=== PATIENT | male | born 1960 | race Caucasian/White ===

== ENCOUNTER 2019-03-07 05:43 | Inpatient (IN) | payer BC ==
[~2019-03-07] VITALS: Ht 185.4 cm; Wt 100.0 kg
[2019-03-07] VITALS (21 sets, daily range): BP systolic 100–188; BP diastolic 34–152
[~2019-03-07 05:43] MED LIST: ASPI81TA52 PO; ATOR20TA PO
[2019-03-07] MEDS ORDERED: aspirin 81mg tab.chew PO ONE (05:50)
[2019-03-07] MEDS ORDERED: ondansetron/PF 4mg/2ml inj IV STA (06:03)
[2019-03-07] MEDS ORDERED: LIDOcaine Viscous 15ml cup MM STA (06:03)
[2019-03-07] MEDS ORDERED: mag hydrox/Alum hydrox/simeth 30ml oral suspension PO STA (06:03)
[2019-03-07] MEDS ORDERED: NO HOME MEDS (06:08)
[2019-03-07 06:15] LABS: BASOPHILS # (AUTO) 0.1 X10'3 (0-0.2); BASOPHILS % (AUTO) 0.7 % (0-1); EOSINOPHILS # (AUTO) 0.2 X10'3 (0-0.9); EOSINOPHILS % (AUTO) 2.1 % (0-6); HEMATOCRIT 47.8 % (42.0-52.0); LYMPHOCYTES # (AUTO) 2.2 X10'3 (1.1-4.8); LYMPHOCYTES % (AUTO) 19.2 % (21-51); MEAN CORPUSCULAR HEMOGLOBIN 30.7 PG (27.0-31.0); MEAN CORPUSCULAR HGB CONC 33.5 g/dL (33.0-36.5); MEAN CORPUSCULAR VOLUME 91.5 FL (78-98); MEAN PLATELET VOLUME 8.9 FL (7.4-10.4); MONOCYTES # (AUTO) 0.8 X10'3 (0-0.9); MONOCYTES % (AUTO) 7.1 % (2-12); NEUTROPHILS # (AUTO) 8.1 X10'3 (1.8-7.7); NEUTROPHILS % (AUTO) 70.9 % (42-75); PLATELET COUNT 157 X10'3 (140-440); RED BLOOD COUNT 5.22 X10'6 (4.70-6.10); RED CELL DISTRIBUTION WIDTH 13.9 % (11.5-14.5); WHITE BLOOD COUNT 11.4 X10'3 (4.5-11.0)
--- NOTE | 2019-03-07 06:37 | NUR ---
DR. NELSON AT BEDSIDE.
[2019-03-07 06:39] LABS: ALANINE AMINOTRANSFERASE 90 U/L (12-78); ALBUMIN 3.8 G/DL (3.4-5.0); ALBUMIN/GLOBULIN RATIO 0.9 (1.1-1.5); ALKALINE PHOSPHATASE 88 IU/L (46-116); ANION GAP 10 (8-16); ASPARTATE AMINO TRANSFERASE 69 U/L (10-37); BILIRUBIN,TOTAL 0.5 MG/DL (0.1-1.0); BLOOD UREA NITROGEN 18 MG/DL (7-18); CALCIUM 9.4 MG/DL (8.5-10.1); CHLORIDE 105 MMOL/L (99-107); GLUCOSE 142 MG/DL (70-104); MAGNESIUM 2.1 MG/DL (1.5-2.4); PARTIAL THROMBOPLASTIN TIME 27 SECONDS (22-32); POTASSIUM 4.6 MMOL/L (3.5-5.1); SODIUM 139 MMOL/L (135-145); TOTAL CARBON DIOXIDE 23.7 MMOL/L (24-32); TOTAL PROTEIN 7.9 G/DL (6.4-8.2); eGFR 87 ML/MIN
[2019-03-07 06:41] LABS: ETHANOL < 0.010 GM/DL (0.0-0.010)
[2019-03-07] MEDS ORDERED: heparin 25,000 UNIT/250ml bag 250 ML IV SCH (06:44)
[2019-03-07] MEDS ORDERED: heparin 10,000 units/1 ML INJ IV ONE (06:45)
[2019-03-07] MEDS ORDERED: heparin 10,000 units/1 ML INJ IV PRN (06:45)
[2019-03-07] MEDS ORDERED: ondansetron/PF 4mg/2ml inj IV ONE (06:45)
[2019-03-07] MEDS ORDERED: morphine 4 MG/ML inj SYRINge IV ONE (06:45)
[2019-03-07 06:50] LABS: LIPASE 155 U/L (73-393)
[2019-03-07] MEDS: tirofiban 12.5mg in NS 250mL 250 ML IV SCH ×2 (07:10→19:34)
[2019-03-07] MEDS: nitroGLYCERIN 0.4mg SUBLingual tab SL PRN ×6 (07:11→10:16)
[2019-03-07] MEDS ORDERED: magnesium hydroxide 30ml (MOM) UD suspension PO PRN ×2 (07:35→09:15)
[2019-03-07] MEDS ORDERED: acetaminophen 325mg tablet PO PRN ×3 (07:35→09:15)
[2019-03-07] MEDS ORDERED: mag hydrox/Alum hydrox/simeth 30ml oral suspension PO PRN ×2 (07:35→09:15)
[2019-03-07] MEDS ORDERED: ondansetron/PF 4mg/2ml inj IV PRN ×2 (07:35→09:15)
[2019-03-07 07:56] LABS: URINE AMPHETAMINE SCREEN NEGATIVE (Neg); URINE BARBITUATE SCREEN NEGATIVE (Neg); URINE BENZODIAZEPINES SCREEN NEGATIVE (Neg); URINE CANNABINOID SCREEN POSITIVE (Neg); URINE COCAINE SCREEN NEGATIVE (Neg); URINE METHADONE SCREEN NEGATIVE (Neg); URINE OPIATE SCREEN NEGATIVE (Neg); URINE PHENCYCLIDINE SCREEN NEGATIVE (Neg)
--- NOTE | 2019-03-07 08:55 | NUR ---
dr. ambrocio at bedside.
[2019-03-07] MEDS ORDERED: normal saline 1000ml 1,000 ML IV SCH ×2 (09:13→14:20)
[2019-03-07] MEDS ORDERED: HYDROcodone/acetaminophen 5mg/325mg tablet PO PRN (09:15)
[2019-03-07] MEDS ORDERED: bisacodyl 10mg suppository rectal RC PRN (09:15)
[2019-03-07] MEDS ORDERED: magnesium 4gm in 100ml NS 100 ML IV PRN (09:15)
[2019-03-07] MEDS ORDERED: magnesium Cl slow-release 64mg tablet PO PRN (09:15)
[2019-03-07] MEDS: K and/or MAG REPLACEMENT MC SCH (09:15)
[2019-03-07] MEDS ORDERED: HYDROcodone/acetaminophen 10/325mg tab PO PRN (09:15)
[2019-03-07] MEDS ORDERED: potassium CL 10mEq/100ml bag 100 ML IV PRN ×2 (09:15)
[2019-03-07] MEDS ORDERED: morphine 2 MG/ML inj. syringe IV PRN ×2 (09:15)
[2019-03-07] MEDS ORDERED: magnesium 2GM in 50ml NS 50 ML IV PRN (09:15)
[2019-03-07] MEDS ORDERED: potassium Cl 20 mEq SR tablet PO PRN ×2 (09:15)
[2019-03-07] MEDS ORDERED: diphenhydrAMINE 50 mg/ml inj IV PRN (09:15)
[2019-03-07] MEDS ORDERED: diphenhydrAMINE 25mg capsule PO PRN (09:15)
[2019-03-07] MEDS: atorvastatin 20mg tablet PO SCH (09:41)
--- NOTE | 2019-03-07 10:00 | NUR ---
PT HAVING EPISODE OF BURNING CP. TROP RESULT 9.82. DR FAJARDO OFFICE CONTACTED. MESSAGE GIVEN. EKG TAKEN, NTG AND MORPHINE GIVEN. DR FAJARDO CONTACTED. EKG FAXED TO HIM. EKG TAKEN TO ER WE WAIT. DR RIVAS STATED NO STEMI BUT WOULD NOT COMMIT. EKG SHOWN TO DR SALAS. NEW ORDERS RECEIVED. Addendum: 03/07/19 at 1034 by Genna Del Cid RN Amended: Links added.
[2019-03-07] MEDS ORDERED: nitroGLYCERIN-Tridil 50MG/D5W 250 ML IV SCH (10:25)
--- NOTE | 2019-03-07 10:28 | NUR ---
Received critical value of troponin 9.82, removed food tray from patient while CRN contacted . While in the room patient began having increased chest pain. started O2 as patient was having difficulty breathing. gave nitro 0.4mgx3 doses q5min, and morphine 2mg, patient reports improvement in pain. Dr. Cruz at bedside, ordered nitro drip to start.
--- NOTE | 2019-03-07 11:10 | NUR ---
patient experiencing resurgence of chest pain, repeat 12-lead EKG performed, Dr. 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 Price
[2019-03-07] MEDS ORDERED: iohexol 350 MG/ML 50ML vial IV ONE (11:59)
[2019-03-07] MEDS ORDERED: iohexol 350MG/ML 100ml bottle IV ONE (11:59)
[2019-03-07] MEDS ORDERED: heparin 1,000unit/ml 10ml vial 10 ML ONE (11:59)
[2019-03-07] MEDS ORDERED: midazolam 2 mg/2 ml injection ONE (11:59)
[2019-03-07] MEDS ORDERED: nitroGLYCERIN-Tridil 50MG/D5W 250 ML IV ONE (11:59)
[2019-03-07] MEDS ORDERED: LIDOcaine 1% (10mg/ml)w/preservative injection 20ml MDV ONE (11:59)
[2019-03-07] MEDS ORDERED: fentaNYL/PF 50MCG/1 ML 2ML syringe ONE (11:59)
--- NOTE | 2019-03-07 12:00 | NUR ---
Patient to catheterization laboratory technician
[2019-03-07] MEDS ORDERED: verapamil 2.5 mg/ml inj IV ONE (12:44)
[2019-03-07] MEDS ORDERED: iohexol 350 MG/1 ML 200ml bottle ONE (13:06)
[2019-03-07] MEDS ORDERED: ticagrelor 90mg tablet ONE (13:30)
--- NOTE | 2019-03-07 14:00 | NUR ---
Patient returned from laborer stores, aggrastat running at 18ml/hr, NS@150ml/hr, heparin@1000/hr, nitro@1.5ml/hr Patient reports relief of chest pain but continuing headache.
[2019-03-07] MEDS ORDERED: OXAZEpam 15mg capsule PO PRN (14:30)
[2019-03-07] MEDS ORDERED: cyclobenzaprine 10mg tablet PO PRN (14:30)
--- NOTE | 2019-03-07 15:21 | NUR ---
PAGER ID: [phone] MESSAGE: MERCEDES Isbell, ext [phone], [id number], [place], patient post cath, still on nitro drip, c/o pounding headache, SBP 140-160s, DBP 60-80s, chest pain has resolved. DC nitro drip? Thank you.
[2019-03-07 15:48] LABS: BASOPHILS # (AUTO) 0.1 X10'3 (0-0.2); BASOPHILS % (AUTO) 0.8 % (0-1); EOSINOPHILS # (AUTO) 0.3 X10'3 (0-0.9); EOSINOPHILS % (AUTO) 2.8 % (0-6); HEMOGLOBIN 14.6 g/dl (14.0-17.9); LYMPHOCYTES # (AUTO) 2.5 X10'3 (1.1-4.8); LYMPHOCYTES % (AUTO) 26.7 % (21-51); MEAN CORPUSCULAR HEMOGLOBIN 31.2 PG (27.0-31.0); MEAN CORPUSCULAR HGB CONC 33.9 g/dL (33.0-36.5); MEAN CORPUSCULAR VOLUME 91.9 FL (78-98); MEAN PLATELET VOLUME 9.1 FL (7.4-10.4); MONOCYTES # (AUTO) 0.8 X10'3 (0-0.9); MONOCYTES % (AUTO) 8.2 % (2-12); NEUTROPHILS # (AUTO) 5.8 X10'3 (1.8-7.7); NEUTROPHILS % (AUTO) 61.5 % (42-75); PLATELET COUNT 147 X10'3 (140-440); RED BLOOD COUNT 4.67 X10'6 (4.70-6.10); RED CELL DISTRIBUTION WIDTH 13.8 % (11.5-14.5); WHITE BLOOD COUNT 9.4 X10'3 (4.5-11.0)
--- NOTE | 2019-03-07 17:48 | NUR ---
Removed dressing from radial access site per order, hemostasis achieved. Patient educated on physical limitations for using that arm and handout was provided. Patient verbalized understanding of teaching.
--- NOTE | 2019-03-07 18:00 | NUR ---
Patient in room PCU 3016. I have received report from MERCEDES Isbell and had the opportunity to ask questions and assume patient care.
--- NOTE | 2019-03-07 18:33 | NUR ---
Problems reprioritized. Patient report given, questions answered & plan of care reviewed with MERCEDES Christiansen. Patient currently resting in bed, bed locked and low, call light in reach, at bedside, no acute distress, stable at shift change.
[2019-03-07] MEDS: carVEDilol 3.125mg tablet PO SCH (19:30)
[2019-03-07] MEDS: docusate sod 100mg capsule PO SCH (19:30)
[2019-03-07] MEDS ORDERED: temazepam 15mg capsule PO PRN (21:00)
[2019-03-08 03:00] VITALS: BP 136/69
[2019-03-08 06:00] VITALS: BP 145/94
--- NOTE | 2019-03-08 06:00 | NUR ---
Patient in room PCU 3016. I have received report from MERCEDES Christiansen and had the opportunity to ask questions and assume patient care. Patient is currently sitting up in chair at side of bed, at bedside, requesting shower. No acute distress, will continue to monitor.
--- NOTE | 2019-03-08 06:07 | NUR ---
Problems reprioritized. Patient report given, questions answered & plan of care reviewed with MERCEDES Isbell.
[2019-03-08 06:36] LABS: ALANINE AMINOTRANSFERASE 84 U/L (12-78); ALBUMIN 3.2 G/DL (3.4-5.0); ALBUMIN/GLOBULIN RATIO 0.8 (1.1-1.5); ALKALINE PHOSPHATASE 72 IU/L (46-116); ANION GAP 9 (8-16); ASPARTATE AMINO TRANSFERASE 74 U/L (10-37); BILIRUBIN,TOTAL 0.6 MG/DL (0.1-1.0); BLOOD UREA NITROGEN 14 MG/DL (7-18); BUN/CREATININE RATIO 16.5 (5.4-32.0); CALCIUM 8.6 MG/DL (8.5-10.1); CHLORIDE 107 MMOL/L (99-107); CHOL/HDL RATIO 4.2 (0.00-4.99); CHOLESTEROL 172 MG/DL (0-200); CREATININE 0.85 MG/DL (0.60-1.10); GLUCOSE 102 MG/DL (70-104); HDL CHOLESTEROL 41 MG/DL (35-60); LDL CHOLESTEROL 125 MG/DL (50-100); MAGNESIUM 2.1 MG/DL (1.5-2.4); PHOSPHORUS 3.9 MG/DL (2.3-4.5); POTASSIUM 4.4 MMOL/L (3.5-5.1); SODIUM 140 MMOL/L (135-145); TOTAL CARBON DIOXIDE 24.3 MMOL/L (24-32); TOTAL PROTEIN 7.1 G/DL (6.4-8.2); TRIGLYCERIDES 56 MG/DL (20-135); eGFR > 90 ML/MIN
[2019-03-08 07:25] LABS: BASOPHILS % (AUTO) 0.6 % (0-1); EOSINOPHILS # (AUTO) 0.2 X10'3 (0-0.9); EOSINOPHILS % (AUTO) 2.6 % (0-6); HEMOGLOBIN 15.2 g/dl (14.0-17.9); LYMPHOCYTES # (AUTO) 1.7 X10'3 (1.1-4.8); LYMPHOCYTES % (AUTO) 22.5 % (21-51); MEAN CORPUSCULAR HEMOGLOBIN 30.6 PG (27.0-31.0); MEAN CORPUSCULAR HGB CONC 33.1 g/dL (33.0-36.5); MEAN CORPUSCULAR VOLUME 92.4 FL (78-98); MEAN PLATELET VOLUME 9.5 FL (7.4-10.4); MONOCYTES % (AUTO) 12.7 % (2-12); NEUTROPHILS # (AUTO) 4.7 X10'3 (1.8-7.7); NEUTROPHILS % (AUTO) 61.6 % (42-75); PLATELET COUNT 138 X10'3 (140-440); RED BLOOD COUNT 4.98 X10'6 (4.70-6.10); RED CELL DISTRIBUTION WIDTH 14.3 % (11.5-14.5); WHITE BLOOD COUNT 7.7 X10'3 (4.5-11.0)
[2019-03-08] MEDS: carVEDilol 3.125mg tablet PO SCH (07:39)
[2019-03-08 07:43] VITALS: BP_SYST 141
[2019-03-08] MEDS: atorvastatin 20mg tablet PO SCH (07:43)
[2019-03-08] MEDS: docusate sod 100mg capsule PO SCH (07:44)
[2019-03-08] MEDS: K and/or MAG REPLACEMENT MC SCH (07:44)
[2019-03-08] MEDS ORDERED: metoprolol succinate 25mg (24-HOUR) SR. Tablet PO SCH (08:00)
[2019-03-08] MEDS ORDERED: lisinopril 10 MG tablet PO SCH (08:00)
[2019-03-08] MEDS ORDERED: aspirin 81mg tablet.DR PO SCH (08:00)
[2019-03-08] MEDS ORDERED: ticagrelor 90mg tablet PO SCH (08:00)
--- NOTE | 2019-03-08 08:55 | NUR ---
PAGER ID: [phone] MESSAGE: [id number] ANDREI WANTS TO LEAVE AMA. [facility] [id number]
--- NOTE | 2019-03-08 09:22 | NUR ---
Pt wanting to leave AMA. Discussed with patient risks of leaving AMA, pt is passive, not responding to discourse. IV removed as patient has made it clear that he is going to leave. AMA paperwork presented to patient, pt demonstrates hesitation about signing paperwork, states that he would like to talk to MD before leaving. I emphasized the importance of making sure that the patient goes home on an anticoagulant to prevent occlusion of newly placed cardiac stent. Pt appears to understand importance of medication, however does not like the idea of having to take medications at home. 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 Empathized with patient, acknowledged that being stressed in this situation is understandable. Expressed to patient importance of taking care of himself. Offered to contact case management on behalf of patient to set up outpatient resources to help manage stressors in life, pt declined. Pt sitting in bed, appears to be weighing decision. Will continue to monitor.
--- NOTE | 2019-03-08 09:48 | NUR ---
Dr. Cruz has not responded to page regarding patient wanting to leave AMA, contacted Dr. Price's answering service and waiting for response.
--- NOTE | 2019-03-08 10:33 | NUR ---
PAGER ID: [phone] MESSAGE: MERCEDES Isbell, ext [phone], [phone], [place], Patient wants to be discharged, cristóbal has seen and evaluated patient. Trying to convince him to not leave AMA.
[2019-03-08] MEDS ORDERED: ATOR20TA66 PO (10:48)
[2019-03-08] MEDS ORDERED: METO-395 PO (10:48)
[2019-03-08] MEDS ORDERED: TICA90TA PO (10:48)
[2019-03-08] MEDS ORDERED: ASPI-1071 PO (10:48)
[2019-03-08] MEDS ORDERED: NITR0.4T51 SL (10:48)
[2019-03-08] MEDS ORDERED: LISI10TA4 PO (10:48)
--- NOTE | 2019-03-08 11:02 | NUR ---
Dr. Cruz called and stated he would be here within 30-45 minutes. Patient was informed of this. Patient snuck out of his room while RN was on break and did not sign his AMA papers and did not receive his prescriptions. Prior to his leaving he was educated on his new prescriptions and the necessity of them for maintaining his new stent. Patient may have snuck out to smoke and may return, unknown at this time. Will attempt to contact him or his .
--- NOTE | 2019-03-08 11:40 | NUR ---
Patient has not returned, no answer on phone, assumed to have left AMA. message left for patient to call if they would like their prescriptions called in for them to [facility].
--- NOTE | 2019-03-08 12:04 | NUR ---
Cardiac diet education consult: Pt left AMA prior to RD visit. Noted that lipid panel WNL except elevated LDL of 125. Addendum: 03/08/19 at [address] Amended: Links added.
--- NOTE | 2019-03-08 12:21 | NUR ---
Patient's called and requested prescriptions be called to [facility]. prescriptions were called in from Dr. Price's oders at 12:20
== END 2019-03-08 10:55 | disposition left against medical advice (07) | DRG 247 ==
LOC: ER 05:43 → PCU 3S 09:17
PROVIDERS: ADMIT Family Medicine; ATTEND Family Medicine
PROC: 4A023N7 Measurement of Cardiac Sampling and Pressure, Left Heart, Percutaneous Approach (ICD-10-PCS; principal; 2019-03-07)
PROC: 027034Z Dilation of Coronary Artery, One Artery with Drug-eluting Intraluminal Device, Percutaneous Approach (ICD-10-PCS; 2019-03-07)
PROC: B2111ZZ Fluoroscopy of Multiple Coronary Arteries using Low Osmolar Contrast (ICD-10-PCS; 2019-03-07)
PROC: B2151ZZ Fluoroscopy of Left Heart using Low Osmolar Contrast (ICD-10-PCS; 2019-03-07)
DX: I21.4 Non-ST elevation (NSTEMI) myocardial infarction (principal); E11.9 Type 2 diabetes mellitus without complications; E66.9 Obesity, unspecified; E78.5 Hyperlipidemia, unspecified; F12.10 Cannabis abuse, uncomplicated; F17.210 Nicotine dependence, cigarettes, uncomplicated; B19.20 Unspecified viral hepatitis C without hepatic coma; K72.90 Hepatic failure, unspecified without coma; Z53.21 Procedure and treatment not carried out due to patient leaving prior to being seen by health care provider; Z60.2 Problems related to living alone; M19.90 Unspecified osteoarthritis, unspecified site; I10 Essential (primary) hypertension; J44.9 Chronic obstructive pulmonary disease, unspecified; Z66 Do not resuscitate; Z80.3 Family history of malignant neoplasm of breast; Z80.52 Family history of malignant neoplasm of bladder; Z82.49 Family history of ischemic heart disease and other diseases of the circulatory system; Z85.05 Personal history of malignant neoplasm of liver; Z85.828 Personal history of other malignant neoplasm of skin; Z90.49 Acquired absence of other specified parts of digestive tract; Z91.19 Patient's noncompliance with other medical treatment and regimen; Z68.29 Body mass index [BMI] 29.0-29.9, adult; Z71.51 Drug abuse counseling and surveillance of drug abuser; Z71.6 Tobacco abuse counseling
CPT/HCPCS: 93458; 96374; 96375; 96376; 99291; C9600; 36415; 71045; 80053; 80061; 80305; 80320; 83036; 83690; 83735; 83880; 84100; 84484; 85025; 85347; 85610; 85730; 87081; 93005; 93308; 99152; 99153; A4620; C1725; C1769; C1874; C1894; G0378; J1644; J2001; J2250; J2270; J2405; J3010; J3246; J3490; J7030; Q9967

== ENCOUNTER 2019-03-12 15:35 | Emergency (ER) | payer BC ==
[~2019-03-12] VITALS: Ht 185.4 cm; Wt 100.0 kg
[~2019-03-12 15:35] MED LIST changes: +ASPI-1071 PO; -ASPI81TA52 PO; -ATOR20TA PO; +ATOR20TA66 PO; +LISI10TA4 PO; +METO-395 PO; +NITR0.4T51 SL; +TICA90TA PO
[2019-03-12 16:14] LABS: BASOPHILS # (AUTO) 0.1 X10'3 (0-0.2); BASOPHILS % (AUTO) 0.7 % (0-1); EOSINOPHILS # (AUTO) 0.2 X10'3 (0-0.9); HEMATOCRIT 43.5 % (42.0-52.0); HEMOGLOBIN 14.8 g/dl (14.0-17.9); LYMPHOCYTES # (AUTO) 1.9 X10'3 (1.1-4.8); LYMPHOCYTES % (AUTO) 24.7 % (21-51); MEAN CORPUSCULAR HEMOGLOBIN 31.1 PG (27.0-31.0); MEAN CORPUSCULAR HGB CONC 33.9 g/dL (33.0-36.5); MEAN CORPUSCULAR VOLUME 91.7 FL (78-98); MEAN PLATELET VOLUME 9.1 FL (7.4-10.4); MONOCYTES # (AUTO) 0.8 X10'3 (0-0.9); MONOCYTES % (AUTO) 10.7 % (2-12); NEUTROPHILS # (AUTO) 4.7 X10'3 (1.8-7.7); NEUTROPHILS % (AUTO) 60.9 % (42-75); PLATELET COUNT 156 X10'3 (140-440); RED BLOOD COUNT 4.75 X10'6 (4.70-6.10); RED CELL DISTRIBUTION WIDTH 13.7 % (11.5-14.5); WHITE BLOOD COUNT 7.7 X10'3 (4.5-11.0)
[2019-03-12 16:28] LABS: ALANINE AMINOTRANSFERASE 90 U/L (12-78); ALBUMIN 3.6 G/DL (3.4-5.0); ALBUMIN/GLOBULIN RATIO 0.9 (1.1-1.5); ALKALINE PHOSPHATASE 99 IU/L (46-116); ANION GAP 8 (8-16); ASPARTATE AMINO TRANSFERASE 40 U/L (10-37); BILIRUBIN,TOTAL 0.3 MG/DL (0.1-1.0); BLOOD UREA NITROGEN 23 MG/DL (7-18); BUN/CREATININE RATIO 24.2 (5.4-32.0); CALCIUM 8.5 MG/DL (8.5-10.1); CHLORIDE 104 MMOL/L (99-107); CREATININE 0.95 MG/DL (0.60-1.10); GLUCOSE 106 MG/DL (70-104); POTASSIUM 4.3 MMOL/L (3.5-5.1); SODIUM 137 MMOL/L (135-145); TOTAL PROTEIN 7.8 G/DL (6.4-8.2); eGFR 82 ML/MIN
[2019-03-12] MEDS ORDERED: morphine 4 MG/ML inj SYRINge IV PRN (16:35)
[2019-03-12] MEDS ORDERED: ondansetron/PF 4mg/2ml inj IV ONE (16:35)
[2019-03-12 16:48] LABS: PARTIAL THROMBOPLASTIN TIME 27 SECONDS (22-32)
[2019-03-12] MEDS: nitroGLYCERIN 0.4mg SUBLingual tab SL PRN ×2 (17:00→17:44)
[2019-03-12] MEDS ORDERED: NITR0.4T51 SL (18:20)
[2019-03-12 18:39] VITALS: BP 112/62
== END 2019-03-12 18:45 | disposition home or self-care (01) ==
LOC: ER 15:36
DX: I20.8 Other forms of angina pectoris (principal); I21.4 Non-ST elevation (NSTEMI) myocardial infarction; M19.90 Unspecified osteoarthritis, unspecified site; F10.99 Alcohol use, unspecified with unspecified alcohol-induced disorder; Z95.818 Presence of other cardiac implants and grafts; Z90.49 Acquired absence of other specified parts of digestive tract; Z60.2 Problems related to living alone; Z56.0 Unemployment, unspecified; Z79.82 Long term (current) use of aspirin; Z79.899 Other long term (current) drug therapy; Y90.9 Presence of alcohol in blood, level not specified
CPT/HCPCS: 36415; 71045; 80053; 83880; 84484; 85025; 85610; 85730; 93005; 96374; 96375; 99284; J2270; J2405